=== PATIENT | female | born 1995 | race Caucasian/White ===

== ENCOUNTER → 2017-07-27 | Outpatient (CLI) | payer OTHER | LOC: GMAM 16:34 | PROVIDERS: ATTEND Family Medicine | DX: Z11.59 Encounter for screening for other viral diseases (principal); Z11.1 Encounter for screening for respiratory tuberculosis ==

== ENCOUNTER → 2018-03-01 | Outpatient (CLI) | payer OTHER | LOC: GMAM 17:11 | PROVIDERS: ATTEND Family Medicine | DX: Z11.59 Encounter for screening for other viral diseases (principal) ==

== ENCOUNTER 2018-03-06 13:00 | Emergency (ER) | payer OTHER ==
[2018-03-06 13:38] VITALS: TEMP 99.5; O2SAT 100
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
--- NOTE | 2018-03-06 14:29 | RAD ---
EXAM DESCRIPTION: Hip,Left 2 Views CLINICAL HISTORY: 22 years Female, hip pain, history of dislocation COMPARISON: None available. FINDINGS: The visualized bones are well-mineralized.No acute fracture or dislocation. The soft tissues appear grossly unremarkable. IMPRESSION: No acute abnormality is noted in the left hip. Electronically signed by: Ayse Garcia MD 03/06/2018 2:28 PM [facility], [place]
--- NOTE | 2018-03-06 14:30 | RAD ---
EXAM DESCRIPTION: Lumbar Spine 3 Views CLINICAL HISTORY: 22 years Female, low back pain after lifting weights COMPARISON: None available. FINDINGS: Straightening of the normal lordotic curvature is noted. The vertebral body heights are well-maintained with no acute compression deformity. The intervertebral disc spaces are well preserved. No evidence of spondylolysis or spondylolisthesis. Posterior spinal fixation hardware is noted traversing L2-L4 vertebral bodies. The visualized prevertebral and paravertebral soft tissues appear grossly unremarkable. IMPRESSION: No acute traumatic abnormality is noted in the lumbar spine radiographically. Electronically signed by: Ayse Garcia MD 03/06/2018 2:29 PM [facility]
[2018-03-06 15:43] VITALS: BP 101/51
== END 2018-03-06 15:05 | disposition home or self-care (01) ==
LOC: ER 13:00
DX: M25.552 Pain in left hip (principal); M54.5 Low back pain; Z98.890 Other specified postprocedural states